=== PATIENT | female | born 1950 | race Caucasian/White ===

== ENCOUNTER 2020-11-11 19:24 | Emergency (ER) | payer OTHER ==
[~2020-11-11] VITALS: Ht 170.2 cm; Wt 71.4 kg
[2020-11-11 19:47] LABS: HEMATOCRIT 39.4 % (37.0-47.0); HEMOGLOBIN 13.1 gm/dL (12.0-15.0); MCH 29.4 pg (26.0-34.0); MCHC 33.4 g/dL (28.0-37.0); MPV 8.8 fl. (7.2-11.1); RBC 4.47 mil/uL (4.20-5.00); RDW-CV 13.3 % (10.5-14.5); WBC 18.3 thou/uL (4.0-11.0)
[2020-11-11 19:59] LABS: CALCIUM 9.7 mg/dL (8.5-10.1); CREATININE 1.2 mg/dL (0.6-1.3); POTASSIUM 3.4 mmol/L (3.5-5.1)
[2020-11-11 20:03] LABS: PROTIME 10.3 Seconds (9.20-11.50)
[2020-11-11 20:04] LABS: ALBUMIN 4.1 g/dL (3.4-5.0); TOTAL BILIRUBIN 0.5 mg/dL (<0.1-1.0); TOTAL PROTEIN 8.3 g/dL (6.4-8.2)
[2020-11-11] MEDS ORDERED: TOPROL XL25 MG PO (20:22)
[2020-11-11] MEDS ORDERED: ATORVASTATIN CA80 MG PO (20:22)
[2020-11-11] MEDS ORDERED: NORVASC5 MG PO (20:23)
[2020-11-11] MEDS ORDERED: BAYER CHEWABLE81 MG PO (20:23)
[2020-11-11 21:47] LABS: URINE BILIRUBIN NEGATIVE (Negative); URINE BLOOD 1+ (Negative); URINE CLARITY CLEAR; URINE COLOR YELLOW; URINE GLUCOSE-RANDOM NEGATIVE (Negative); URINE KETONES NEGATIVE (Negative); URINE LEUKOCYTES NEGATIVE (Negative); URINE NITRITE POSITIVE (Negative); URINE PROTEIN 2+ (Negative); URINE UROBILINOGEN 0.2 E.U./dl (0.2-1.0)
[2020-11-11 21:55] VITALS: BP 139/69
[2020-11-11 22:11] LABS: SQUAMOUS 4-10 Moderate /LPF (0-3)
[2020-11-11 22:13] LABS: CASTS None Seen /LPF (None Seen); URINE RBC 0-2 Rare /HPF (0-2)
[2020-11-11 22:14] LABS: AMORPHOUS PHOSPHATES Moderate /LPF (None Seen); CRYSTALS None Seen /LPF (None Seen)
--- NOTE | 2020-11-13 11:00 | EKG ---
[place] [address] ELECTROCARDIOGRAM REPORT Name: HARMONY MORALES Room: [facility]#: [id number] Admission: 11/11/20 Attend Phys: Discharge: 11/11/20 Date of : 48 Date of Service: 11/11/201933 Report #: [id number] THIS REPORT FOR: //name// [facility] ED Test Date: 2020-11-11 Test Time: 19:34:55 Pat Name: HARMONY MORALES Department: Room: Gender: Parts Sales Manager: : 1950 Requested By: Maryanne Queen Order Number: [id number] MD: Pedro Mcmillan Measurements Intervals [place] Rate: 103 P: 82 [place]: 176 QRS: 20 QRSD: 92 T: 68 QT: 354 QTc: 464 Interpretive Statements Sinus tachycardia Consider left atrial enlargement No previous ECG available for comparison Electronically Signed On 11-13-2020 11:00:26 CDT by Pedro Mcmillan [email or web address] <ELECTRONICALLY SIGNED> By: Pedro Mcmillan MD, [facility] 11/13/[address] [facility] 33 33 Pedro Mcmillan MD, FACC /EPI
== END 2020-11-11 21:55 | disposition short-term general hospital (02) ==
LOC: M.ERS 19:24
PROVIDERS: Emergency Medicine
DX: I61.8 Other nontraumatic intracerebral hemorrhage (principal); Z20.822 Contact with and (suspected) exposure to COVID-19; F17.210 Nicotine dependence, cigarettes, uncomplicated